=== PATIENT | female | born 1970 | race Caucasian/White ===

== ENCOUNTER 2022-07-28 19:07 | Emergency (ER) | payer OTHER, SELFPAY ==
[2022-07-28] VITALS (9 sets, daily range): BP systolic 92–139; BP diastolic 70–85; PULSE 55–73; RESP 16–18; TEMP 37.1; O2SAT 93–99; BMI 45.0
--- NOTE | 2022-07-28 21:14 | ED_ITS ---
HPI - Weakness General Time Seen by Provider: 21:14 Date Seen: 07/28/22 Chief complaint: Weakness Stated complaint: Blood pressure dropped, almost lost consciousness Time Seen by Provider: 07/28/22 21:14 Source: patient, RN notes reviewed and old records reviewed Mode of arrival: ambulatory Limitations: no limitations History of Present Illness HPI Narrative: Dylan is a very pleasant 52-year-old female with history of 75 lb weight loss, history of hypokalemia, hypertension who comes to the emergency room for evaluation regarding a syncopal episode. Earlier today patient was at a friend's house and while they had been outside she had not been participating in any particularly strenuous activity. She started feeling like she was sweating on the back of her neck felt like lightheaded and went inside to sit down. While seated she started feeling nauseated was seeing spots in her vision and this gradually worsened. This was also associated with being very sweaty. Patient actually was unresponsive while at the tables and friends were holding her up. They think this lasted for a few minutes. The next thing she remembers is them trying to give her applesauce as they thought perhaps her blood sugar was low. During that time friends also noted that she seemed like she was short of breath although Dylan does not recall this. She was back feeling alert within a few minutes but her sisters noted that she was quite pale. A blood pressure was done and it was 90/74. Here in the emergency room patient admits that she feels much better. She notes no chest pain recent falls or illnesses. He states that a similar occurrence happened 1 year ago in [place] when she got off the plane. She was actually seen in the emergency room at that time and diagnosed with low potassium. This is what prompted her to be more healthy and the 75 lb weight loss. She has also been in taking more water lately. She does note that she is on 2 different blood pressure medications including losartan and hydrochlorothiazide. She recently decreased her losartan dosing. The only new thing recently is that she had not had a period for 6 months and she had a heavy period a week ago associated with more cramping than normal. She still has small amount of blood when using the bathroom. She notes initially she had some loose stools with her periods but this has resolved. She denies history of recent COVID or reason for dehydration today. Again, patient denies chest pain, recent extended travel plane trips, history of DVT, unusual lower extremity edema, shortness of breath at this time. Related Data Allergies Allergy/AdvReac Type Severity Reaction Status Date / Time No Known Drug Allergies Allergy Verified 07/28/22 19:41 Review of Systems Status of ROS: Reports: 10 or more systems reviewed and unremarkable except as noted in History and below Const: Reports: change in weight (75 lb purposeful weight loss); Denies: fever, chills or fatigue Eyes: Reports: change in vision (When she was feeling lightheaded started seeing spots in her vision.) ENMT: Denies: throat pain, neck pain, difficulty swallowing, hoarseness or tinnitus Cardio: Reports: lightheadedness and shortness of breath with exertion (Per witnesses. Patient denies); Denies: chest pain, palpitations or swelling of feet/ankles Resp: Reports: shortness of breath (Per witnesses. Patient denies); Denies: cough GI: Denies: abdominal pain, nausea, vomiting, diarrhea or difficulty swallowing : Denies: painful urination, urinary frequency or urinary urgency Musculo: Denies: back pain or neck pain Integ/Breast: Denies: rash Neuro: Denies: headache or numbness in extremities Endo: Denies: excessive urination or fatigue Exam Narrative: Exam Narrative: Alert and oriented. Very well-spoken pleasant woman. Accompanied by her sisters who are very loving and supportive EOM is full in eyes are clear. Head appears atraumatic normocephalic. Neck is supple without lymphadenopathy. Oral cavity with moist mucous membranes. Heart with regular rate and rhythm without murmur rub or additional heart sounds. Lungs are clear bilaterally. Abdomen soft nontender. Lower extremities without edema. Moving all extremities. Const: Vital Signs, click to edit/add: Vital Signs - 24 hr 07/28/22 19:33 07/28/22 22:09 07/28/22 22:30 Temperature 98.7 F Pulse Rate 57 L Pulse Rate [Right Pulse Oximeter] 73 Respiratory Rate 16 18 Blood Pressure 121/70 Blood Pressure [Ri ght Upper Arm] 139/85 Pulse Oximetry 99 94 95 Oxygen Delivery Me thod Room Air 07/28/22 22:31 07/28/22 22:32 07/28/22 23:00 Temperature Pulse Rate 57 L 58 L 56 L Pulse Rate [Right Pulse Oximeter] Respiratory Rate Blood Pressure 123/74 Blood Pressure [Ri ght Upper Arm] Pulse Oximetry 94 96 93 Oxygen Delivery Me thod 07/28/22 23:02 Temperature Pulse Rate 56 L Pulse Rate [Right Pulse Oximeter] Respiratory Rate Blood Pressure 92/77 Blood Pressure [Ri ght Upper Arm] Pulse Oximetry 94 Oxygen Delivery Me thod Documenting provider has reviewed patient's vital signs: yes Course Course Hospital Course: Differential diagnosis does include syncopal episode, pre syncopal episode made worse by continued upright status, cardiac arrhythmia, underlying urinary tract infection, anxiety. At this time patient does not have tachycardia nor hypoxia and is not on any rate limiting medication. Further she has no risk factors for DVT. Do not think this is PE. The fact that she did have prodromal symptoms suggests a vasovagal reaction or some sort of drop of blood pressure. Will check a CBC, comprehensive, urinalysis, troponin, EKG, chest x-ray. Will give 1 L of normal saline. Reevaluation(s) Reevaluation #1: Patient continues to do well. Second set of cardiac enzymes and EKG pending. Urinalysis pending. Reevaluation #2: Patient noted to have blood pressure 92 systolic and now rebounded to 110. She has been somewhat bradycardic in the 50s but not dropping below 55. Asymptomatic to this. No evidence of arrhythmia or PVCs. Second set of cardiac enzymes negative. Vital Signs Vital signs: Initial Vital Signs Temperature 98.7 F 07/28/22 19:33 Temperature Source Temporal Artery Scan 07/28/22 19:33 Pulse Rate 73 07/28/22 19:33 Pulse Rhythm Regular 07/28/22 19:33 Pulse Strength 3+ Normal 07/28/22 19:33 Respiratory Rate 16 07/28/22 19:33 Blood Pressure 139/85 07/28/22 19:33 Blood Pressure Mean 103 07/28/22 19:33 Blood Pressure Position Sitting 07/28/22 19:33 Pulse Oximetry 99 07/28/22 19:33 Oxygen Delivery Method Room Air 07/28/22 19:33 Vital Signs Temperature 98.7 F 07/28/22 19:33 Pulse Rate 73 07/28/22 19:33 Respiratory Rate 16 07/28/22 19:33 Blood Pressure 139/85 07/28/22 19:33 Pulse Oximetry 99 07/28/22 19:33 Oxygen Delivery Method Room Air 07/28/22 19:33 Temperature 98.7 F 07/28/22 19:33 Pulse Rate 56 L 07/28/22 23:02 Respiratory Rate 18 07/28/22 22:09 Blood Pressure 92/77 07/28/22 23:02 Pulse Oximetry 94 07/28/22 23:02 Oxygen Delivery Method Room Air 07/28/22 19:33 MDM - Weakness MDM Narrative Medical decision making narrative: 1. Syncopal episode-I had do recognize that patient had some pre syncopal symptoms consistent with low blood pressure. She was held up after she passed out which I think probably cause the true syncope. I am wondering if perhaps she had a vasovagal reaction from both the heat and mildly depressed blood pressure. She has recently decreased her losartan from 50-25 mg. She is on 12.5 mg of hydrochlorothiazide. At this time I am recommending discontinuing hydrochlorothiazide and follow up with her primary MD for recheck. I would like her to continue to push fluids. At this time no evidence of underlying acute coronary event, arrhythmia, suspicion for PE, pneumonia, UTI. Other laboratory values are reassuring. She denies it chest pain or racing heart prior to this event. She did receive 1 L of normal saline in the ED. She has been asymptomatic during her ED stay. 2. Disposition-home at this time. Return to the emergency room for worsening symptoms and as needed. Lab Data Attestation: I reviewed the patient's lab results. Labs: Lab Results 07/28/22 07/28/22 07/28/22 Range/Units 21:31 22:00 23:18 WBC 9.88 (4.50-11.00) K/uL RBC 4.91 (4.00-5.20) m/uL Hgb 13.6 (12.0-16.0) gm/dL Hct 42.3 (33.0-51.0) % MCV 86 (80-100) fL MCH 28 (26-34) pg MCHC 32 (32-36) gm/dL RDW Coeff of Kelly 13.3 (11.5-15.5) % Plt Count 323 (140-440) K/uL Neut % (Auto) 76.8 H (42.0-72.0) % Lymph % (Auto) 16.6 L (20-44) % [place] % (Auto) 5.4 (0.0-11.0) % Eos % (Auto) 0.9 (0.0-7.0) % Baso % (Auto) 0.2 (0.0-3.0) % Neut # (Auto) 7.60 H (1.7-7.0) K/uL Lymph # (Auto) 1.60 (0.90-2.90) K/uL [place] # (Auto) 0.50 (0.00-0.90) K/UL Eos # (Auto) 0.09 (0.00-0.50) K/uL Baso # (Auto) 0.02 (0.00-0.30) K/uL Sodium 132 L (135-149) mmol/L Potassium 4.0 (3.6-5.1) mmol/L Chloride 100 (96-114) mmol/L Carbon Dioxide 23 (20-32) mmol/L BUN 16 (7-30) mg/dL Creatinine 0.6 (0.5-1.5) mg/dL Estimated Creat Clear 89.70 Estimated GFR 107 ml/min Glucose 100 (60-115) mg/dL Calcium 9.3 (8.4-10.6) mg/dL Magnesium 2.0 (1.5-2.6) mg/dL Total Bilirubin 0.8 (0.1-1.5) mg/dL AST 61 H (12-35) U/L ALT 36 H (4-35) U/L Alkaline Phosphatase 89 (40-150) U/L Total Protein 8.0 (6.0-8.3) g/dL Albumin 4.5 (3.3-5.0) g/dL Urine Color (Yellow) Urine Appearance (Clear) Urine pH (5.0-8.5) Ur Specific [place] (1.000-1.030) Urine Protein (Negative) Urine Glucose (UA) (Negative) Urine Ketones (Negative) Urine Blood (Negative) Urine Nitrite (Negative) Urine Bilirubin (Negative) Urine Urobilinogen (0.2-1.0) Ur Leukocyte Esterase (Negative) Urine RBC (0-2) Urine WBC (0-5) Ur Squamous Epith Cells (None-Few) Urine Bacteria (None) Urine Mucus (None) POC Troponin I 0.00 L 0.00 L (0.01-0.04) ng/ml 07/28/22 Range/Units 23:30 WBC (4.50-11.00) K/uL RBC (4.00-5.20) m/uL Hgb (12.0-16.0) gm/dL Hct (33.0-51.0) % MCV (80-100) fL MCH (26-34) pg MCHC (32-36) gm/dL RDW Coeff of [place] (11.5-15.5) % Plt Count (140-440) K/uL Neut % (Auto) (42.0-72.0) % Lymph % (Auto) (20-44) % [place] % (Auto) (0.0-11.0) % Eos % (Auto) (0.0-7.0) % Baso % (Auto) (0.0-3.0) % Neut # (Auto) (1.7-7.0) K/uL Lymph # (Auto) (0.90-2.90) K/uL [place] # (Auto) (0.00-0.90) K/UL Eos # (Auto) (0.00-0.50) K/uL Baso # (Auto) (0.00-0.30) K/uL Sodium (135-149) mmol/L Potassium (3.6-5.1) mmol/L Chloride (96-114) mmol/L Carbon Dioxide (20-32) mmol/L BUN (7-30) mg/dL Creatinine (0.5-1.5) mg/dL Estimated Creat Clear Estimated GFR ml/min Glucose (60-115) mg/dL Calcium (8.4-10.6) mg/dL Magnesium (1.5-2.6) mg/dL Total Bilirubin (0.1-1.5) mg/dL AST (12-35) U/L ALT (4-35) U/L Alkaline Phosphatase (40-150) U/L Total Protein (6.0-8.3) g/dL Albumin (3.3-5.0) g/dL Urine Color Yellow (Yellow) Urine Appearance Cloudy A (Clear) Urine pH 6.0 (5.0-8.5) Ur Specific [place] 1.015 (1.000-1.030) Urine Protein Negative (Negative) Urine Glucose (UA) Negative (Negative) Urine Ketones Negative (Negative) Urine Blood 3+ A (Negative) Urine Nitrite Negative (Negative) Urine Bilirubin Negative (Negative) Urine Urobilinogen 0.2 (0.2-1.0) Ur Leukocyte Esterase Negative (Negative) Urine RBC 10-25 A (0-2) Urine WBC 0-2 (0-5) Ur Squamous Epith Cells Few (None-Few) Urine Bacteria Few A (None) Urine Mucus Moderate A (None) POC Troponin I (0.01-0.04) ng/ml Imaging Data Chest x-ray: Attestation: I have reviewed the pertinent imaging results. My impression: No obvious infiltrates or acute findings noted. Radiologist's impression: Cardiovasculature and mediastinum:? Heart size and vasculature are normal in caliber and appearance.? Lungs and pleural spaces:? Lungs are clear.? No sign of infiltrate or mass. ?No sign of pleural effusion.? No pneumothorax.? Bones and soft tissues:? No significant findings. IMPRESSION: No acute or significant findings. ECG Data Attestation: I personally reviewed and interpreted this ECG as follows: Interpretation: EKG by my read shows sinus bradycardia at a rate of 58. T-wave inversion noted in 3, V2 V3. I do not note any acute findings. EKG 2. By my read shows sinus bradycardia at a rate of 55. T-wave inversion V1 to 3. Otherwise no acute ST or T-wave changes. Discharge Plan Discharge Clinical Impression: Episode of syncope Patient Disposition: Home w/ Parent or Adult Condition: Improved Additional Instructions: Recommend pushing fluids. If you start feeling faint please do not sit but at rather laid down. Follow-up with your primary MD for further evaluation. Seek medical attention for worsening symptoms. Follow Up/Referrals: Provider,Not a Local [Primary Care Provider] - Stand Alone Forms: [employer] Info Instructions
--- NOTE | 2022-07-28 21:31 | CRLHL7_ITS ---
For Patients: As a result of the Century Cures Act, medical imaging exams and procedure reports are released immediately into your electronic medical record. You may view this report before your referring provider. If you have questions, please contact your health care provider. INDICATION: Syncopal episode. TECHNIQUE: Chest 1 views. COMPARISON: None. FINDINGS: Cardiovasculature and mediastinum: Heart size and vasculature are normal in caliber and appearance. Lungs and pleural spaces: Lungs are clear. No sign of infiltrate or mass. No sign of pleural effusion. No pneumothorax. Bones and soft tissues: No significant findings. IMPRESSION: No acute or significant findings. Dictated by Yogesh Tai MD @ 07/28/2022 10:07:09 PM (Electronically Signed)
[2022-07-28] MEDS: 0.9 % SODIUM CHLORIDE 1000 ml 1,000 ML IV (22:08)
[2022-07-28 22:12] LABS: Basophils Absolute Auto 0.02 K/uL (0.00-0.30); Basophils Percent Auto 0.2 % (0.0-3.0); Eosinophils Absolute Auto 0.09 K/uL (0.00-0.50); Eosinophils Percent Auto 0.9 % (0.0-7.0); Hematocrit 42.3 % (33.0-51.0); Hemoglobin* 13.6 gm/dL (12.0-16.0); Immature Granulocytes Abs Auto 0.01 K/uL (0.00-0.30); Immature Granulocytes Pct Auto 0.1 %; Lymphocytes Percent Auto 16.6 % (20-44); Mean Corpuscular HGB Conc 32 gm/dL (32-36); Mean Corpuscular Hemoglobin 28 pg (26-34); Mean Corpuscular Volume 86 fL (80-100); Monocytes Percent Auto 5.4 % (0.0-11.0); Neutrophils Percent Auto 76.8 % (42.0-72.0); Platelet Count* 323 K/uL (140-440); RDW Coefficient of Variation % 13.3 % (11.5-15.5); Red Blood Count 4.91 m/uL (4.00-5.20); White Blood Count* 9.88 K/uL (4.50-11.00)
[2022-07-28 22:15] LABS: Slide Review Reflex No
[2022-07-28 22:44] LABS: Albumin* 4.5 g/dL (3.3-5.0); Chloride* 100 mmol/L (96-114)
[2022-07-28 22:45] LABS: Sodium* 132 mmol/L (135-149)
[2022-07-28 22:47] LABS: Alanine Aminotransferase* 36 U/L (4-35); Alkaline Phosphatase* 89 U/L (40-150); Aspartate Amino Transferase* 61 U/L (12-35); Bilirubin Total* 0.8 mg/dL (0.1-1.5); Blood Urea Nitrogen* 16 mg/dL (7-30); Carbon Dioxide* 23 mmol/L (20-32); Creatinine* 0.6 mg/dL (0.5-1.5); Estimated Glomerular Filt Rate 107 ml/min
[2022-07-28 22:48] LABS: Calcium* 9.3 mg/dL (8.4-10.6); Glucose* 100 mg/dL (60-115)
[2022-07-28 23:35] LABS: Bilirubin Urine Negative (Negative); Blood Urine 3+ (Negative); Color Urine Yellow (Yellow); Glucose Urine Negative (Negative); Ketones Urine Negative (Negative); Leukocyte Esterase Urine Negative (Negative); Nitrite Urine Negative (Negative); Protein Urine Negative (Negative); Specific Gravity Urine 1.015 (1.000-1.030); Urobilinogen Urine 0.2 (0.2-1.0)
[2022-07-28 23:41] LABS: Appearance Urine Cloudy (Clear); Bacteria Urine Few; Mucus Urine Moderate; Squamous Epithelial Cell Urine Few (None-Few); WBC Urine 0-2 (0-5)
[2022-07-29] VITALS: PULSE 56; O2SAT 97
[2022-07-29 00:02] VITALS: BP 110/69; PULSE 58; O2SAT 93
== END 2022-07-29 00:22 | disposition home or self-care (01) ==
PROVIDERS: Emergency Provider Family Medicine
DX: R55 Syncope and collapse (principal)
CPT/HCPCS: 36415; 71045; 80053; 81001; 83735; 84484; 85025; 87086; 93005; 96360; 99284; 99285; J7030